=== PATIENT | male | born 2000 | race Asian ===

== ENCOUNTER 2021-03-15 20:26 | Emergency (ER) | payer BC ==
[~2021-03-15] VITALS: Ht 165.1 cm; Wt 56.7 kg
[2021-03-15 21:48] LABS: PLATELET COUNT 117 K/uL (142-355)
[2021-03-15 21:55] LABS: POTASSIUM 4.1 mmol/L (3.6-5.2)
[2021-03-15 23:45] VITALS: BP 126/78; TEMP 99.4
== END 2021-03-15 23:45 | disposition home or self-care (01) ==
LOC: ED 20:26
PROVIDERS: Hospitalist
DX: J06.9 Acute upper respiratory infection, unspecified (principal); U07.1 COVID-19; E86.0 Dehydration; R11.2 Nausea with vomiting, unspecified
CPT/HCPCS: 36415; 80053; 81000; 83690; 85027; 87635; 96360; 96375; 99284; J2405; U0003